=== PATIENT | female | born 1950 | race Two or more races ===

== ENCOUNTER 2016-11-24 07:20 | Emergency (ER) | payer OTHER ==
[2016-11-24 07:28] VITALS: RESP 14; TEMP 97.9
--- NOTE | 2016-11-24 09:23 | EDPHY ---
H & P Stated Complaint: fall Time Seen by Provider: 11/24/16 09:00 HPI/ROS: CHIEF COMPLAINT: mechanical fall HISTORY OF PRESENT ILLNESS: 66-year-old female presents emergency department by ambulance after mechanical fall at work today. 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 She states she fell onto her butt first then fell back striking her head. She denies loss of consciousness, remembers the entire accident. She states she did not have very much pain at 1st though has had increased neck pain since the accident. She arrives by EMS in a cervical collar. Patient is not anticoagulated. She denies any numbness or tingling to extremities, no blurred vision, no nausea, she reports a mild headache. She denies other complaints. 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 Head: mild posterior occiput tenderness to palpation, no contusion or abrasion Eyes: Pupils equal, round, reactive to light, EOMI, no trauma, no injection. Ears: Clear bilaterally, no perforation, no hemotympanum Nose: Atraumatic, no rhinorrhea, no septal hematoma Neck: midline and paraspinal cervical tenderness to palpation bilaterally Cardiovascular: Heart is regular rate and rhythm without murmur. Good capillary refill all extremities. Chest: Atraumatic, equal bilateral breath sounds. Chest is non-tender to palpation. Gastrointestinal: Soft, non-tender, non-distended. No rebound, guarding, or peritoneal signs. There is no evidence of external or internal trauma. Back: Midline thoracic tenderness to palpation, no midline lumbar spine tenderness, bilateral paraspinal lumbar tenderness to palpation Extremities: All extremities are non-tender to palpation without obvious deformity. There is full active range of motion of the joints. Neurological: The patient has normal DTRs and non-focal Cranial nerves, motor, sensory, and cerebellar exam Skin: No lacerations, garcía, or abrasions. Constitutional: Initial Vital Signs Temperature (C) 36.6 C 11/24/16 07:26 Heart Rate 61 11/24/16 07:26 Respiratory Rate 14 11/24/16 07:26 Blood Pressure 148/81 H 11/24/16 07:26 O2 Sat (%) 95 11/24/16 07:26 O2 Delivery Mode Room Air Allergies/Adverse Reactions: No Known Allergies Allergy (Unverified 11/24/16 07:28) Home Medications: Medication Instructions Recorded NK [No Known Home Meds] 11/24/16 Medical Decision Making - Diagnostics Imaging Results: Imaging Impressions Cervical Spine CT 11/24/16 09:18 Impression: 1. No acute osseous abnormality seen about the cervical spine. 2. Degenerative disk disease at C4-C5 along with left-sided facet hypertrophy. 3. Degenerative disk disease at C5-C6 with moderate spinal and neuroforaminal stenosis. These findings were discussed by telephone with Michael Lai NP at 1022 hrs. Thoracic Spine X-Ray 11/24/16 09:18 Impression: 1. No acute osseous abnormality seen about the thoracic spine. 2. Mild dextroscoliosis lower thoracic spine. 3. Mild degenerative disk disease. Imaging: Discussed imaging studies w/ virtual recruiter Radiologist, I viewed and interpreted images myself ED Course/Re-evaluation: CT cervical spine and x-ray of thoracic spine has been ordered. The patient has a normal neurologic exam with no evidence of ICH. 1030am- Ct c-spine shows no acute abnormality. C-collar removed. No neurologic deficits with active range of motion. Patient will be discharged home. Departure - Departure Disposition: Home, Routine, Self-Care Clinical Impression: Cervical strain, acute Qualifiers: Encounter type: initial encounter Qualified Code(s): S16.1XXA - Strain of muscle, fascia and tendon at neck level, initial encounter Low back strain Qualifiers: Encounter type: initial encounter Qualified Code(s): S39.012A - Strain of muscle, fascia and tendon of lower back, initial encounter Minor head injury without loss of consciousness Qualifiers: Encounter type: initial encounter Qualified Code(s): S09.90XA - Unspecified injury of head, initial encounter Condition: Good Instructions: Cervical Strain (ED), Head Injury (ED), Low Back Strain (ED) Additional Instructions: Rest, ice to your sore areas, take 600 mg of ibuprofen every 8 hours as needed for pain for the next 3-5 days. Follow up with the worker's compensation provider. Return to the emergency department for any worsening symptoms, new symptoms or concerns. Stand Alone Forms: Work Comp Follow Up Print Language: Martiniquais
[2016-11-24 09:42] VITALS: BP 168/80; PULSE 56; O2SAT 96
== END 2016-11-24 11:20 | disposition home or self-care (01) ==
LOC: EDUNIT#
DX: S09.90XA Unspecified injury of head, initial encounter (principal); S16.1XXA Strain of muscle, fascia and tendon at neck level, initial encounter; S39.012A Strain of muscle, fascia and tendon of lower back, initial encounter; W18.39XA Other fall on same level, initial encounter; Y92.69 Other specified industrial and construction area as the place of occurrence of the external cause; Y99.0 Civilian activity done for income or pay; Y93.89 Activity, other specified